=== PATIENT | male | born 1995 | race Caucasian/White ===

== ENCOUNTER 2020-03-15 17:46 | Emergency (ER) | payer OTHER ==
[2020-03-15 17:59] VITALS: TEMP 99.3
[2020-03-15 19:09] LABS: Basophils # (A) 0.1 k/uL (0-0.2); Basophils % (A) 1 %; Eosinophils # (A) 0.1 k/uL (0-0.7); Eosinophils % (A) 1 %; HCT 43.5 % (39.0-53.0); HGB 14.8 gm/dL (13.0-17.5); Lymphocytes % (A) 30 %; MCH 32.6 pg (25.0-35.0); MCV 95.8 fL (80.0-100.0); Mean Platelet Volume 7.7; Monocytes # (A) 0.7 k/uL (0-1.0); Monocytes % (A) 7 %; Neutrophils # (A) 5.9 k/uL (1.3-7.7); Neutrophils % (A) 59 %; Platelet Count 324 k/uL (150-450); RBC 4.54 m/uL (4.30-5.90); RDW 12.3 % (11.5-15.5); WBC 10.1 k/uL (3.8-10.6)
[2020-03-15 19:17] LABS: ALT 25 U/L (4-49); AST 25 U/L (17-59); African American GFR (CKD) >90 (>60 ml/min/1.73 sqM); Albumin 4.8 g/dL (3.5-5.0); Alkaline Phosphatase 94 U/L (38-126); Anion Gap 8 mmol/L; Blood Urea Nitrogen 11 mg/dL (9-20); Calcium 9.9 mg/dL (8.4-10.2); Carbon Dioxide 25 mmol/L (22-30); Chloride 103 mmol/L (98-107); Glucose 111 mg/dL (74-99); Non-African American GFR(CKD) >90 (>60 ml/min/1.73 sqM); Potassium 4.3 mmol/L (3.5-5.1); Sodium 136 mmol/L (137-145); Total Bilirubin 0.3 mg/dL (0.2-1.3); Total Protein 7.9 g/dL (6.3-8.2)
--- NOTE | 2020-03-15 19:28 | XR ---
EXAMINATION TYPE: XR chest 2V DATE OF EXAM: 03/15/2020 COMPARISON: NONE HISTORY: Dizziness TECHNIQUE: FINDINGS: Heart and mediastinum are normal. Lungs are clear. Diaphragm is normal. Bony thorax appears normal. There are chest leads. IMPRESSION: Normal chest.
--- NOTE | 2020-03-15 20:09 | ED ---
Dizziness HPI - General Chief Complaint: Dizziness Stated Complaint: Lightheaded,Dizziness Time Seen by Provider: 03/15/20 18:29 Source: patient Mode of arrival: ambulatory Limitations: no limitations - History of Present Illness Initial Comments: 24-year-old male presenting today for chief complaint of lightheadedness, brain fog. Patient states since he quit smoking 2 weeks ago he has felt lightheaded like he is in a fall when he wakes up. Patient states that he has not had any headache visual changes nausea vomiting diarrhea denies cough congestion he states at times he feels anxious and has chest pain he denies any chest pain currently or today. She denies shortness of breath states at times when he feels anxious he feels shortness of breath at that moment. Patient states that he has not had leg swelling he denies calf pain denies hemoptysis or history of DVT pulmonary embolism. Pt denies exogenous hormone use or recent surgeries/injuries. Patient has no additional complaints. He denies sensation room is spinning or spinning with head movement. states more like a pass out feeling/or just feeling off than like a vertigo sensation. - Related Data Allergies Allergy/AdvReac Type Severity Reaction Status Date / Time No Known Allergies Allergy Verified 03/15/20 17:58 Review of Systems ROS Statement: Those systems with pertinent positive or pertinent negative responses have been documented in the HPI. ROS Other: All systems not noted in ROS Statement are negative. Past Medical History Past Medical History: No Reported History History of Any Multi-Drug Resistant Organisms: None Reported Past Surgical History: No Surgical Hx Reported Past Psychological History: No Psychological Hx Reported Smoking Status: Former smoker Past Alcohol Use History: Occasional Past Drug Use History: None Reported General Exam - General Exam Comments Initial Comments: General: The patient is awake and alert, in no distress, and does not appear acutely ill. Eye: +3 mm pupils are equal, round and reactive to light, extra-ocular movements are intact. No nystagmus. There is normal conjunctiva bilaterally. No signs of icterus. Ears, nose, mouth and throat: There are moist mucous membranes and no oral lesions. Neck: The neck is supple, there is no tenderness or JVD. Cardiovascular: There is a regular rate and rhythm. No murmur, rub or gallop is appreciated. Respiratory: Lungs are clear to auscultation, respirations are non-labored, breath sounds are equal. No wheezes, stridor, rales, or rhonchi. Gastrointestinal: Soft, non-distended, non-tender abdomen without masses or organomegaly noted. There is no rebound or guarding present. Musculoskeletal: Normal ROM, no tenderness. Strength 5/5. Sensation intact. Radial and DP pulses equal bilaterally 2+. Neurological: A&O x 3. CN II-XII intact grossly, There are no obvious motor or sensory deficits. Coordination appears grossly intact. Speech is normal. Skin: Skin is warm and dry and no rashes or lesions are noted. NO Calf pain no LE edema. no calf swelling. Psychiatric: Cooperative, appropriate mood & affect, normal judgment. Limitations: no limitations Course Vital Signs 03/15/20 03/15/20 17:56 20:22 Temperature 99.3 F Pulse Rate 93 73 Respiratory 18 16 Rate Blood Pressure 166/97 130/89 O2 Sat by Pulse 100 98 Oximetry EKG Findings - EKG Comments: EKG Findings:: Ventricular rate 82 bpm, NH interval 148 ms, QRS sikh 98 ms, QT/QTC 364/425 ms. This is normal sinus no ST elevation or depression is appreciated. Medical Decision Making - Medical Decision Making Labs stable. recently quit smoking. initial BP high. second within acceptable limits pt EKg no acute changes, no chest pain no current SOB. Patient CXR clear. lungs clear. heart sounds WNL. no peripheral findings. movements smooth and coordinated. no focal neurological deficits. discussed case and reviewed EKG with attending Dr. Trinidad who is agreeable to care plan and discharge. - Lab Data Result diagrams: 03/15/20 18:59 03/15/20 18:59 Lab Results 03/15/20 03/15/20 03/15/20 Range/Units 18:59 18:59 18:59 WBC 10.1 (3.8-10.6) k/uL RBC 4.54 (4.30-5.90) m/uL Hgb 14.8 (13.0-17.5) gm/dL Hct 43.5 (39.0-53.0) % MCV 95.8 (80.0-100.0) fL MCH 32.6 (25.0-35.0) pg MCHC 34.0 (31.0-37.0) g/dL RDW 12.3 (11.5-15.5) % Plt Count 324 (150-450) k/uL MPV 7.7 Neutrophils % 59 % Lymphocytes % 30 % Monocytes % 7 % Eosinophils % 1 % Basophils % 1 % Neutrophils # 5.9 (1.3-7.7) k/uL Lymphocytes # 3.0 (1.0-4.8) k/uL Monocytes # 0.7 (0-1.0) k/uL Eosinophils # 0.1 (0-0.7) k/uL Basophils # 0.1 (0-0.2) k/uL Sodium 136 L (137-145) mmol/L Potassium 4.3 (3.5-5.1) mmol/L Chloride 103 (98-107) mmol/L Carbon Dioxide 25 (22-30) mmol/L Anion Gap 8 mmol/L BUN 11 (9-20) mg/dL Creatinine 0.78 (0.66-1.25) mg/dL Est GFR (CKD-EPI)AfAm >90 (>60 ml/min/1.73 sqM) Est GFR (CKD-EPI)NonAf >90 (>60 ml/min/1.73 sqM) Glucose 111 H (74-99) mg/dL Calcium 9.9 (8.4-10.2) mg/dL Total Bilirubin 0.3 (0.2-1.3) mg/dL AST 25 (17-59) U/L ALT 25 (4-49) U/L Alkaline Phosphatase 94 (38-126) U/L Troponin I <0.012 (0.000-0.034) ng/mL Total Protein 7.9 (6.3-8.2) g/dL Albumin 4.8 (3.5-5.0) g/dL Disposition Clinical Impression: Light-headed feeling Disposition: HOME SELF-CARE Condition: Good Instructions (If sedation given, give patient instructions): Near Syncope (ED) Additional Instructions: Please use medication as discussed. Please follow-up with family doctor in the next 2 days.. Please return to emergency room if the symptoms increase or worsen or for any other concerns. Is patient prescribed a controlled substance at d/c from ED?: No Referrals: None,Stated [Primary Care Provider] - 1-2 days Time of Disposition: 20:09
[2020-03-15 20:23] VITALS: BP 130/89; PULSE 73; RESP 16
== END 2020-03-15 20:24 | disposition home or self-care (01) ==
LOC: EC 17:46
DX: R42 Dizziness and giddiness (principal); R06.02 Shortness of breath; Z87.891 Personal history of nicotine dependence; Z20.828 Contact with and (suspected) exposure to other viral communicable diseases
CPT/HCPCS: 99284; 36415; 93005; 80053; 84484; 85025; 71046; U0003